=== PATIENT | female | born 1965 | race Asian ===

== ENCOUNTER 2018-01-24 19:02 | Emergency (ER) | payer OTHER ==
[~2018-01-24] VITALS: Ht 157.5 cm; Wt 67.1 kg
[~2018-01-24 19:02] MED LIST: ASPIR 8181 MG PO
[2018-01-24] MEDS ORDERED: PANTOPRAZOLE SO40 MG PO (19:12)
[2018-01-24] MEDS ORDERED: SODIUM CHLORIDE 0.9% 1000ML 1,000 ML IV STA (19:37)
[2018-01-24] MEDS ORDERED: PANTOPRAZOLE 40 MG 10ML VIAL IV NR (19:45)
[2018-01-24] MEDS ORDERED: GLUCAGON FOR INJ 1 MG VIAL IV ONE (19:45)
[2018-01-24 19:51] LABS: BASOPHILS # (AUTO) 0.1 (0.0-0.1); BASOPHILS % 0.6 % (0.0-1.0); EOSINOPHILS # (AUTO) 0.2 (0.0-0.4); EOSINOPHILS % 2.1 % (0.0-6.0); HEMATOCRIT 40.8 % (34.2-44.1); HEMOGLOBIN 13.9 g/dL (12.0-16.0); LYMPHOCYTES # (AUTO) 3.2 (1.0-3.2); LYMPHOCYTES % 39.3 % (18.0-39.1); MEAN CORPUSCULAR HGB CONC 34.1 g/dL (31-35); MEAN CORPUSCULAR VOLUME 85.2 fL (81-99); MONOCYTES # (AUTO) 0.6 (0.2-0.8); MONOCYTES % 7.5 % (4.4-11.3); NEUTROPHILS % 50.3 % (38.7-80.0); PLATELET COUNT 275 x10e3/uL (140-360); RED BLOOD COUNT 4.79 x10e6/uL (3.6-5.1)
[2018-01-24 19:54] LABS: INR 0.81; PARTIAL THROMBOPLASTIN TIME 29.2 seconds (23.8-35.5)
[2018-01-24 20:03] LABS: ALANINE AMINOTRANSFERASE 14 IU/L (0-55); ALBUMIN 3.7 g/dL (3.5-5.0); ALBUMIN/GLOBULIN RATIO 0.9 (0.8-2.0); ALKALINE PHOSPHATASE 78 IU/L (40-150); ANION GAP 11.4 mmol/L (8-16); BLOOD UREA NITROGEN 11 mg/dL (7-26); BUN/CREATININE RATIO 13 (6-25); CALCIUM 8.9 mg/dL (8.4-10.2); CARBON DIOXIDE 24 mmol/L (22-29); CHLORIDE 104 mmol/L (98-107); CREATINE KINASE 103 IU/L (29-168); CREATININE, SERUM 0.87 mg/dL (0.57-1.11); EST GLOMERULAR FILTRATION RATE > 60 ML/MIN (60-); GLUCOSE 127 mg/dL (74-118); MAGNESIUM 2.5 MG/DL (1.3-2.1); POTASSIUM 3.4 mmol/L (3.5-5.1); SODIUM 136 mmol/L (136-145)
== END 2018-01-24 21:10 | disposition home or self-care (01) ==
LOC: ER 19:02
DX: R09.89 Other specified symptoms and signs involving the circulatory and respiratory systems (principal); R10.13 Epigastric pain; K21.9 Gastro-esophageal reflux disease without esophagitis; I65.22 Occlusion and stenosis of left carotid artery
CPT/HCPCS: 36415; 80053; 82550; 82553; 83735; 84484; 85025; 85610; 85730; 93005; 99283; J1610; J7030

== ENCOUNTER 2021-08-17 01:59 | Emergency (ER) | payer OTHER ==
[~2021-08-17] VITALS: Ht 157.5 cm; Wt 67.1 kg
[~2021-08-17 01:59] MED LIST changes: +PANTOPRAZOLE SO40 MG PO
[2021-08-17] MEDS ORDERED: LISINOPRIL 10 MG TAB PO ONE (02:15)
[2021-08-17] MEDS ORDERED: MECLIZINE HCL 12.5 MG TAB PO ONE (02:15)
[2021-08-17 02:26] LABS: BASOPHILS # (AUTO) 0.1 (0.0-0.1); BASOPHILS % 0.9 % (0.0-1.0); EOSINOPHILS # (AUTO) 0.2 (0.0-0.4); EOSINOPHILS % 1.9 % (0.0-6.0); HEMOGLOBIN 15.4 g/dL (12.0-16.0); LYMPHOCYTES # (AUTO) 4.4 (1.0-3.2); LYMPHOCYTES % 50.5 % (18.0-39.1); MEAN CORPUSCULAR HEMOGLOBIN 28.8 pg (28-32); MEAN CORPUSCULAR HGB CONC 32.8 g/dL (31-35); MONOCYTES # (AUTO) 0.6 (0.2-0.8); MONOCYTES % 6.9 % (4.4-11.3); NEUTROPHILS # (AUTO) 3.5 (2.1-6.9); NEUTROPHILS % 39.7 % (38.7-80.0); PLATELET COUNT 272 x10e3/uL (140-360); RED BLOOD COUNT 5.34 x10e6/uL (3.6-5.1); RED CELL DISTRIBUTION WIDTH 12.5 % (11.7-14.4)
[2021-08-17] MEDS ORDERED: LISINOPRIL 20 MG TAB ONE (02:29)
[2021-08-17] MEDS ORDERED: LISINOPRIL 10 MG TAB ONE (02:30)
[2021-08-17 02:45] LABS: ANION GAP 14.3 mmol/L (8-16); BLOOD UREA NITROGEN 11 mg/dL (7-26); BUN/CREATININE RATIO 13 (6-25); CALCIUM 9.3 mg/dL (8.4-10.2); CARBON DIOXIDE 25 mmol/L (22-29); CHLORIDE 106 mmol/L (98-107); CREATINE KINASE 106 IU/L (29-168); CREATININE, SERUM 0.83 mg/dL (0.57-1.11); GLUCOSE 119 mg/dL (74-118); POTASSIUM 3.3 mmol/L (3.5-5.1); SODIUM 142 mmol/L (136-145)
[2021-08-17 03:32] VITALS: BP 163/70
== END 2021-08-17 03:46 | disposition home or self-care (01) ==
LOC: ER 02:07
DX: R42 Dizziness and giddiness (principal); I10 Essential (primary) hypertension; K21.9 Gastro-esophageal reflux disease without esophagitis; R94.31 Abnormal electrocardiogram [ECG] [EKG]
CPT/HCPCS: 36415; 70450; 80048; 82550; 82553; 84484; 85025; 93005; 99284; J8597